=== PATIENT | male | born 1945 | race Caucasian/White ===

== ENCOUNTER 2017-07-20 06:46 | Day surgery (SDC) | payer MEDICARE ==
[2017-07-20 08:33] LABS: #Eosinphils 0.5 thou/uL (0.0-0.7); #Lymphocytes 2.2 thou/uL (1.20-3.40); #Monocytes 0.9 thou/uL (0.11-0.59); #Neutrophils 6.9 thou/uL (1.40-6.50); %Basophils 0.5 % (0.0-1.0); %Eosinophils 4.9 % (0.0-10.0); %Lymphocytes 21.2 % (21.0-51.0); %Monocytes 8.5 % (0.0-10.0); Hematocrit 57.1 % (42.0-52.0); Mean Platelet Volume 7.2 fL (7.4-10.4); Red Blood Cell (RBC) Count 6.41 mill/uL (4.70-6.10); White Blood Cell (WBC) Count 10.6 thou/uL (4.8-10.8)
[2017-07-20 08:50] LABS: Anion Gap 14 mmol/L (10-20); BUN (Urea Nitrogen) 22 mg/dL (8.4-25.7); Calc. Creatinine Clearance 84 mL/min (70-130); Calcium 9.9 mg/dL (7.8-10.44); Carbon Dioxide 28 mmol/L (23-31); Chloride 103 mmol/L (98-107); Estimated GFR-MDRD 62
[2017-07-20] MEDS ORDERED: Fentanyl 250 MCG/5 ML VIAL ONE (09:52)
[2017-07-20] MEDS ORDERED: Glycopyrrolate 0.2 MG/ML 5 ML SYRINGE ONE (10:40)
[2017-07-20] MEDS ORDERED: ePHEDrine/0.9% NaCl/PF SYRINGE 50 mg/10 ml ONE (10:40)
[2017-07-20] MEDS ORDERED: PHENYLEPHRINE-NS 100 MCG/ML 10 ML SYRINGE ONE (10:40)
[2017-07-20] MEDS ORDERED: Propofol 200 MG/20 ML VIAL ONE (10:40)
[2017-07-20] MEDS ORDERED: tiZANidine HCl 4 MG TAB ONE (12:22)
[2017-07-20] MEDS ORDERED: Fentanyl 100 MCG/2 ML VIAL ONE (12:24)
[2017-07-20] MEDS ORDERED: Morphine Sulfate 2 MG/ML SYRINGE ONE (12:32)
[2017-07-20] MEDS ORDERED: HYDROcodone/Acetaminophen 5/325 mg Tablet ONE (13:20)
--- NOTE | 2017-07-20 15:08 | EKG ---
Test Reason : PREOP Blood Pressure : / mmHG Vent. Rate : 072 BPM Atrial Rate : 072 BPM P-R Int : 180 ms QRS Dur : 100 ms QT Int : 402 ms P-R-T Axes : 062 071 048 degrees QTc Int : 440 ms Normal sinus rhythm ST elevation, consider early repolarization Borderline ECG No previous ECGs available Confirmed by LIYAH DARBY ([id number]) on 07/20/2017 3:08:28 PM Referred By: TORITO Confirmed By:LIYAH ADRBY
--- NOTE | 2017-07-20 15:47 | OP ---
DATE OF PROCEDURE: 07/20/2017 SURGEON: Kit Browning M.D. COST COORDINATOR: Rashid. PROCEDURE: L3-4 laminectomy. PROCEDURE IN DETAIL: The patient was brought into the operating room, intubated. He was rolled in the prone position on gel-filled chest rolls. Incision made exposing made exposing L3-4 and our lev el was confirmed by x-ray. We performed complete L4 and inferior L3 laminectomies and identified th e expected synovial cyst. This was removed and debrided and a complete decompression was achieved. The wound was extensively irrigated, immaculate hemostasis was secured. Vancomycin powder was appl ied and the wound was closed in anatomic layers.
[2017-07-20] MEDS ORDERED: diphenhydrAMINE HCl 25 MG CAP PO PRN (18:52)
[2017-07-20] MEDS ORDERED: Promethazine HCl 12.5 MG SUPP PR PRN (18:52)
[2017-07-20] MEDS ORDERED: Milk Of Magnesia 30 ML UDCUP PO PRN (18:52)
[2017-07-20] MEDS ORDERED: diphenhydrAMINE HCl 50 MG/ML 1 ML VIAL IVP PRN (18:52)
[2017-07-20] MEDS ORDERED: Mag-Al 1200 mg/1200 mg/30 ML UDCUP PO PRN (18:52)
[2017-07-20] MEDS ORDERED: HYDROcodone/Acetaminophen 10/325 mg Tablet PO PRN ×2 (18:52)
[2017-07-20] MEDS ORDERED: Promethazine HCl 25 MG/ML VIAL IM PRN (18:52)
[2017-07-20] MEDS ORDERED: Sodium Chloride 0.9% 1,000 ML IV SCH (18:52)
[2017-07-20] MEDS ORDERED: Morphine Sulfate 2 MG/ML SYRINGE SLOW IVP PRN (18:52)
[2017-07-20] MEDS ORDERED: Ondansetron HCl/PF 4 MG/2 ML Vial SLOW IVP PRN (18:52)
[2017-07-20] MEDS ORDERED: tiZANidine HCl 4 MG TAB PO PRN (18:52)
[2017-07-20 19:34] VITALS: BMI 31.5
[2017-07-20] MEDS ORDERED: FLU VACC TS2017-18 (>65YR) 0.5 ML SYRINGE IM ONE (21:00)
[2017-07-20] MEDS: Ketorolac Tromethamine 30 MG/ML VIAL IVP SCH (23:56)
[2017-07-21] MEDS: Ketorolac Tromethamine 30 MG/ML VIAL IVP SCH (05:29)
[2017-07-21 07:34] VITALS: BP 167/88; TEMP 97.9
--- NOTE | 2017-07-21 14:08 | DIS ---
DATE OF ADMISSION: 07/20/2017 DATE OF DISCHARGE: 07/21/2017 HOSPITAL COURSE: The patient is a 71-year-old male with progressively worsening low back and leg pain, who underwent L3-L4 laminectomy for lumbar degenerative changes and lumbar synovial cyst. Postoperatively, patient developed urinary retention and required placement of an indwelling Ventura catheter. This was removed next morning. The patient was able to void on his own approximately 600 mL. He has, otherwise, been doing well. His pain was well controlled with p.o. medications. He was ambulatory throughout the department. He had good strength to bilateral lower extremities. No sensation changes. Dressing was dry, soft. Patient was tolerating his diet. He was dismissed to home. We have scheduled followup with office in approximately 2 weeks. We have discussed home care instructions and provided patient with scripts for [place] and Zanaflex. CAROLANN
== END 2017-07-21 12:27 | disposition home or self-care (01) ==
LOC: SDC 06:46 → SURG A 18:44 → UNDOADMOB 18:44 → SURG A 18:44 → UNDODISOB 07-21 12:27 → SDC 07-21 12:27
PROVIDERS: ATTEND Neurological Surgery
PROC: 00NY0ZZ Release Lumbar Spinal Cord, Open Approach (ICD-10-PCS; principal; 2017-07-20)
DX: M48.061 Spinal stenosis, lumbar region without neurogenic claudication (principal); Z79.899 Other long term (current) drug therapy; Z90.49 Acquired absence of other specified parts of digestive tract; Z96.1 Presence of intraocular lens; Z96.652 Presence of left artificial knee joint; Z98.890 Other specified postprocedural states
CPT/HCPCS: 36416; 76001; 80048; 85025; 93005; 93010; 96374; J1885; J2270; J2704; J3010; J3370

== ENCOUNTER 2018-08-02 06:45 | Inpatient (IN) | payer MEDICARE ==
[2018-07-30 14:18] VITALS: BMI 29.8
[2018-08-02 07:07] LABS: #Basophils 0.1 thou/uL (0.0-0.2); #Eosinphils 0.7 thou/uL (0.0-0.7); #Lymphocytes 2.4 thou/uL (1.20-3.40); #Monocytes 0.8 thou/uL (0.11-0.59); #Neutrophils 6.1 thou/uL (1.40-6.50); %Basophils 0.5 % (0.0-1.0); %Lymphocytes 24.1 % (21.0-51.0); %Monocytes 7.7 % (0.0-10.0); %Neutrophils 60.7 % (42.0-75.0); Hemoglobin 15.9 g/dL (14.0-18.0); Mean Corpuscular HGB CONC 31.9 g/dL (32.0-36.0); Mean Corpuscular Hemoglobin 27.9 pg (27.0-31.0); Mean Corpuscular Volume 87.5 fL (78.0-98.0); Mean Platelet Volume 7.5 fL (7.4-10.4); Platelet Count 220 thou/uL (130-400); RBC Distribution Width 13.1 % (11.5-14.5); Red Blood Cell (RBC) Count 5.71 mill/uL (4.70-6.10)
[2018-08-02 07:18] LABS: Anion Gap 8 mmol/L (10-20); BUN (Urea Nitrogen) 23 mg/dL (8.4-25.7); Calc. Creatinine Clearance 70 mL/min (70-130); Calcium 9.3 mg/dL (7.8-10.44); Carbon Dioxide 34 mmol/L (23-31); Chloride 100 mmol/L (98-107); Estimated GFR-MDRD 51; Glucose 112 mg/dL (83-110); Potassium 4.4 mmol/L (3.5-5.1); Sodium 138 mmol/L (136-145)
[2018-08-02] MEDS ORDERED: CEFAZOLIN 2 GM/50 ML BAG ONE (07:30)
[2018-08-02] MEDS ORDERED: Fentanyl 100 MCG/2 ML VIAL ONE ×4 (07:33→10:24)
[2018-08-02] MEDS ORDERED: Sodium Chloride 0.9% 10 ML ONE (08:20)
[2018-08-02] MEDS ORDERED: Promethazine HCl 25 MG/ML VIAL IM PRN ×2 (09:43→11:08)
[2018-08-02] MEDS ORDERED: Ondansetron HCl/PF 4 MG/2 ML Vial IVP PRN (09:43)
[2018-08-02] MEDS ORDERED: Promethazine HCl 25 MG/ML VIAL SLOW IVP PRN (09:43)
[2018-08-02] MEDS ORDERED: Milk Of Magnesia 30 ML UDCUP PO PRN (11:08)
[2018-08-02] MEDS ORDERED: Morphine 4 MG/ML VIAL SLOW IVP PRN (11:08)
[2018-08-02] MEDS ORDERED: HYDROcodone/Acetaminophen 10/325 mg Tablet PO PRN ×2 (11:08)
[2018-08-02] MEDS ORDERED: Promethazine 25 MG TAB PO PRN (11:08)
[2018-08-02] MEDS ORDERED: Mag-Al 1200 mg/1200 mg/30 ML UDCUP PO PRN (11:08)
[2018-08-02] MEDS ORDERED: Promethazine HCl 12.5 MG SUPP PR PRN (11:08)
[2018-08-02] MEDS ORDERED: Ondansetron PF 4 MG/2 ML Vial IVP PRN (11:09)
[2018-08-02] MEDS ORDERED: diphenhydrAMINE 25 MG CAP PO PRN (11:13)
[2018-08-02] MEDS ORDERED: diphenhydrAMINE 50 MG/ML VIAL IVP PRN (11:13)
[2018-08-02] MEDS: Ketorolac Tromethamine 30 MG/ML VIAL IVP SCH ×2 (11:39→17:31)
[2018-08-02] MEDS: Sodium Chloride 0.9% 1,000 ML IV SCH (11:42)
--- NOTE | 2018-08-02 11:45 | OP ---
DATE OF PROCEDURE: 08/02/2018 SURGEON: Kit Browning M.D. FIELD CARE COORDINATOR: Sven Mcgregor PA-C PROCEDURE: L3-L5 laminectomy, facetectomy, foraminotomy, and removal of synovial cyst, interbody art hrodesis, intravertebral biomechanical device, local morselized autograft, demineralized bone matrix, posterior lateral arthrodesis, demineralized bone matrix, pedicle screw instrumentation L3 through L 5. PROCEDURE IN DETAIL: The patient was brought to the operating room and intubated. He was rolled in the prone position on gel-filled chest rolls. Incision made exposing L3 through L5 and our level was confirmed by x-ray. We performed left-sided L3-4 and L4-5 decompressive laminectomy, facetectomy an d foraminotomies. At L3-4 as expected, we found a synovial cyst. A complete decompression was achie izaiah at both levels. The disk was entirely removed and the bony endplates were decorticated for the p urpose of arthrodesis. Appropriately sized intravertebral biomechanical PEEK device was then brought into the field, filled with demineralized bone matrix and local morselized autograft, and tapped int o place securely at L3-L4 and L4-L5. Next, pedicle screws were placed at left L3, left L4, left L5 u sing lateral fluoroscopic guidance. A iggy was secured between the screws. Compression was applied a nd the iggy was secured by nuts which were final tightened. The wound was then extensively irrigated, immaculate hemostasis was secured. A combination of demineralized bone matrix, local morselized aut ograft was laid over the right laminar and posterolateral surfaces for the purpose of arthrodesis. V ancomycin powder was applied and the wound was then closed in anatomic layers.
[2018-08-02] MEDS: tiZANidine HCl 4 MG TAB PO PRN (12:34)
[2018-08-02] MEDS ORDERED: Insulin Regular 300 UNITS/3 ML VIAL SC PRN ×2 (13:45)
[2018-08-02] MEDS ORDERED: Senokot S 8.6-50 MG TAB PO SCH (13:45)
[2018-08-02] MEDS ORDERED: Dextrose 5% in Water 1,000 ML IV PRN (13:45)
[2018-08-02] MEDS ORDERED: Dextrose 50% Abboject 50 ML SYRINGE SLOW IVP PRN (13:45)
--- NOTE | 2018-08-02 14:58 | EKG ---
Test Reason : PREOP Blood Pressure : / mmHG Vent. Rate : 079 BPM Atrial Rate : 079 BPM P-R Int : 174 ms QRS Dur : 102 ms QT Int : 398 ms P-R-T Axes : 058 068 041 degrees QTc Int : 456 ms Sinus rhythm with Premature atrial complexes with Abberant conduction Non-specific intra-ventricular conduction delay Abnormal ECG Confirmed by LIYAH DARBY ([id number]) on 08/02/2018 2:58:15 PM Referred By: TORITO Confirmed By:LIYAH DARBY
[2018-08-02] MEDS: CEFAZOLIN 2 GM/50 ML-DEXTROSE 2 GM in Premix Bag 1 BAG IVPB SCH (15:31)
[2018-08-02] MEDS ORDERED: CEFAZOLIN/Water 2 GM/20 ML SYRINGE SLOW IVP SCH (16:00)
[2018-08-02] MEDS ORDERED: Ketorolac Tromethamine 30 MG/ML VIAL ONE (17:06)
[2018-08-02] MEDS ORDERED: ePHEDrine/0.9% NaCl/PF SYRINGE 50 mg/10 ml ONE (17:06)
[2018-08-02] MEDS ORDERED: PHENYLEPHRINE-NS 100 MCG/ML 10 ML SYRINGE ONE (17:06)
[2018-08-02] MEDS ORDERED: Dexamethasone 20 MG/5 ML VIAL ONE (17:06)
[2018-08-02] MEDS ORDERED: Glycopyrrolate 0.2 MG/ML 5 ML SYRINGE ONE (17:06)
[2018-08-02] MEDS ORDERED: Ondansetron PF 4 MG/2 ML Vial ONE (17:06)
[2018-08-02] MEDS ORDERED: Lidocaine 1% PF 5 ML VIAL ONE (17:06)
[2018-08-02] MEDS ORDERED: PROPOFOL 200 MG/20 ML VIAL ONE (17:06)
[2018-08-02] MEDS: metFORMIN 500 MG TAB PO SCH (17:31)
[2018-08-02] MEDS ORDERED: Lisinopril/Hydrochlorothiazide 20 mg/12.5 mg Tablet PO SCH (21:00)
--- NOTE | 2018-08-02 21:27 | PDOC.PN ---
- Subjective Encounter Start Date: 08/02/18 Encounter Start Time: 14:00 Patient seen and examined for med mngt. No new complaints. No overnight events - Objective MAR Reviewed: Yes Vital Signs & Weight: Vital Signs (12 hours) Temp Pulse Resp BP Pulse Ox 08/02/18 20:00 98.7 F 86 19 146/76 H 95 08/02/18 10:30 97.8 F 90 16 146/76 H 92 L Weight Weight 220 lb I&O: 08/01/18 08/02/18 08/03/18 06:59 06:59 06:59 Intake Total 1505 Output Total 560 Balance 945 Result Diagrams: 08/02/18 06:59 08/02/18 06:59 Additional Labs: Accuchecks 08/02/18 18:04 POC Glucose 155 H EKG Reviewed by me: Yes (SR) Phys Exam - Physical Examination Constitutional: NAD Respiratory: no wheezing, no rhonchi Cardiovascular: RRR, no rub Gastrointestinal: soft, non-tender, positive bowel sounds Musculoskeletal: no edema Neurological: moves all 4 limbs Dx/Plan - Plan DVT proph w/SCDs 1. HTN Cont Lisinopril/HCTZ BMP in AM 2. DM2 Lantus 10 units HS with Metformin Add sliding scale 3. Chronic constipation Add Miralax and Sen S 4. HLD Cont Statins 5. CKD 3 Avoid Nephrotoxic agents Will follow. Thank you for this consultation. Full code. DPOA - self/family Review of Systems - Review of Systems Respiratory: negative: Cough, Dry, Shortness of Breath, Hemoptysis, SOB with Excertion, Pleuritic Pain, Sputum, Wheezing Cardiovascular: negative: chest pain, palpitations, orthopnea, paroxysmal nocturnal dyspnea, edema, light headedness, other - Medications/Allergies Allergies/Adverse Reactions: Allergies Allergy/AdvReac Type Severity Reaction Status Date / Time tamsulosin Allergy Severe Swollen Verified 08/02/18 20:34 Lips Medications: Current Medications Hydrocodone Bitart/Acetaminophen ([place] 10/325) 1 tab PO Q4H PRN PRN Reason: PAIN (1-3) Hydrocodone Bitart/Acetaminophen ([place] 10/325) 2 tab PO Q4H PRN PRN Reason: PAIN (4-6) Last Admin: 08/02/18 12:34 Dose: 2 tab Al Hydroxide/Mg Hydroxide (Maalox) 30 ml PO Q4H PRN PRN Reason: Heartburn or Indigestion Dextrose/Water (Dextrose 50%) 25 gm SLOW IVP PRN PRN PRN Reason: Hypoglycemia Diphenhydramine HCl (Benadryl) 25 mg PO Q6H PRN PRN Reason: Itching Diphenhydramine HCl (Benadryl) 25 mg IVP Q6H PRN PRN Reason: Itching Glucagon (Glucagon) 1 mg IM PRN PRN PRN Reason: Hypoglycemia Lisinopril/HCTZ (Prinizide 20-12.5) 1 tab PO [facility] Sodium Chloride (Normal Saline 0.9%) 1,000 mls @ 75 mls/hr IV .[id number] [facility] Last Admin: 08/02/18 11:42 Dose: Not Given Cefazolin Sodium/Dextrose 2 gm (/ Device) 50 mls @ 100 mls/hr IVPB 0800,1600, 2359 [facility] Stop: 08/03/18 00:28 Last Admin: 08/02/18 15:31 Dose: 50 mls Insulin Glargine 10 units/ (Miscellaneous Medication) 0.1 mls @ 0 mls/hr SC [facility] Dextrose/Water (D5w) 1,000 mls @ 0 mls/hr IV .Q0M PRN PRN Reason: Hypoglycemia Cefazolin Sodium/Dextrose 2 gm (/ Device) 50 mls @ 100 mls/hr IVPB 0800,1600, 2359 [facility] Insulin Human Regular (Humulin R) 0 units SC .MILD SLIDING SCALE PRN PRN Reason: Mild Correctional Scale Insulin Human Regular (Humulin R) 0 units SC .BEDTIME SLIDING SC PRN PRN Reason: Bedtime Correctional Scale Ketorolac Tromethamine (Toradol) 15 mg IVP Q6HR [facility] Stop: 08/04/18 06:01 Last Admin: 08/02/18 17:31 Dose: 15 mg Magnesium Hydroxide (Milk Of Magnesium) 30 ml PO Q12H PRN PRN Reason: Constipation Meloxicam (Mobic) 7.5 mg PO DAILY [facility] Metformin HCl (Glucophage) 500 mg PO BID-[facility] Last Admin: 08/02/18 17:31 Dose: 500 mg Morphine Sulfate (Morphine) 2 mg SLOW IVP Q1H PRN PRN Reason: Moderate Breakthrough Pain Morphine Sulfate (Morphine) 4 mg SLOW IVP Q1H PRN PRN Reason: SEVERE BREAKTHROUGH PAIN Last Admin: 08/02/18 11:39 Dose: 4 mg Multivitamins (Theragran) 1 tab PO DAILY [facility] Ondansetron HCl (Zofran) 4 mg IVP Q8H PRN PRN Reason: Nausea/Vomiting Polyethylene Glycol (Miralax) 17 gm PO BID [facility] Promethazine HCl (Phenergan) 12.5 mg IM Q4H PRN PRN Reason: Nausea/Vomiting Promethazine HCl (Phenergan) 12.5 mg PO Q4H PRN PRN Reason: Nausea/Vomiting Promethazine HCl (Phenergan Suppository) 12.5 mg [place] Q4H PRN PRN Reason: Nausea/Vomiting Rosuvastatin Calcium (Crestor) 10 mg PO HS [place] Senna/Docusate Sodium (Senokot S) 2 tab PO BID [facility] Sodium Chloride (Flush - Normal Saline) 10 ml IVF PRN PRN PRN Reason: Saline Flush Testosterone Cypionate (Depo-Testosterone) 120 mg IM We [facility] Tizanidine HCl (Zanaflex) 4 mg PO Q6H PRN PRN Reason: MUSCLE SPASM Last Admin: 08/02/18 12:34 Dose: 4 mg
[2018-08-02] MEDS: Rosuvastatin 10 MG TAB PO SCH (22:02)
[2018-08-02] MEDS: Senokot S 8.6-50 MG TAB PO SCH (22:03)
[2018-08-02] MEDS: Lisinopril/Hydrochlorothiazide 20 mg/12.5 mg Tablet PO SCH (22:03)
[2018-08-02] MEDS: Polyethylene Glycol 3350 17 GM Packet PO SCH (22:04)
[2018-08-02] MEDS: Insulin Glargine 10 UNITS in Pre-Filled Syringe 1 EACH SC SCH (22:04)
[2018-08-03] MEDS: Ketorolac Tromethamine 30 MG/ML VIAL IVP SCH ×2 (00:06→06:04)
[2018-08-03] MEDS: CEFAZOLIN 2 GM/50 ML-DEXTROSE 2 GM in Premix Bag 1 BAG IVPB SCH ×3 (00:08→17:54)
[2018-08-03] MEDS: Sodium Chloride 0.9% 1,000 ML IV SCH ×2 (00:12→18:11)
[2018-08-03 05:50] LABS: Anion Gap 12 mmol/L (10-20); BUN (Urea Nitrogen) 29 mg/dL (8.4-25.7); Calc. Creatinine Clearance 67 mL/min (70-130); Calcium 8.3 mg/dL (7.8-10.44); Carbon Dioxide 29 mmol/L (23-31); Chloride 99 mmol/L (98-107); Estimated GFR-MDRD 49; Glucose 147 mg/dL (83-110); Magnesium 1.7 mg/dL (1.6-2.6); Potassium 4.3 mmol/L (3.5-5.1); Sodium 136 mmol/L (136-145)
--- NOTE | 2018-08-03 07:42 | PRG ---
DATE OF SERVICE: 08/03/2018 ATTENDING PHYSICIAN: Dr. Kit Browning SUBJECTIVE: The patient is a 72-year-old male status post L3-L5 decompression and fusion, postoperative day #1. The patient reports his pain is well controlled and he has no complaints this morning at the bedside with regards to pain. He is reporting his constipation and has orders for Milk of Magnesia, MiraLax, and Senna. He reports that often when he developed constipation he subsequently also develops urinary retention. He has had issues with urinary retention yesterday afternoon and overnight requiring placement of indwelling Ventura catheter. He is unable to take Flomax. He reports this is similar to prior surgeries and has a known history of BPH. He has no other complaints at this time. His GORAN had 135 output last night. He is awake, alert, comfortable. He has free active range of motion of all extremities. His dressing is dry. No focal neurologic deficits are appreciated. I have added p.r.n. Fleet enema for constipation relief. The patient reports this helped significantly last time and once his constipation improved he was able to urinate without difficulty. We will leave Ventura catheter for now until constipation improves and then we will plan to remove with voiding trial after that time. We will continue to monitor his GORAN output and leave in place for now. CAROLANN
[2018-08-03] MEDS: metFORMIN 500 MG TAB PO SCH ×2 (08:20→17:54)
[2018-08-03] MEDS: Meloxicam 7.5 MG TAB PO SCH (08:20)
[2018-08-03] MEDS: Multivit, Therapeutic 1 TAB PO SCH (08:21)
[2018-08-03] MEDS: Senokot S 8.6-50 MG TAB PO SCH ×2 (08:21→21:45)
[2018-08-03] MEDS: Polyethylene Glycol 3350 17 GM Packet PO SCH ×2 (08:21→08:53)
[2018-08-03] MEDS ORDERED: TOUJEO SOLOSTAR SC SCH (09:00)
[2018-08-03] MEDS ORDERED: Magnesium Citrate 300 ML BOT PO SCH (12:00)
[2018-08-03] MEDS: Rosuvastatin 10 MG TAB PO SCH (21:26)
[2018-08-03] MEDS: Insulin Glargine 10 UNITS in Pre-Filled Syringe 1 EACH SC SCH (21:26)
[2018-08-03] MEDS: Lisinopril/Hydrochlorothiazide 20 mg/12.5 mg Tablet PO SCH (21:26)
[2018-08-03] MEDS: tiZANidine HCl 4 MG TAB PO PRN (21:27)
--- NOTE | 2018-08-03 22:40 | PDOC.PN ---
- Subjective Encounter Start Date: 08/03/18 Encounter Start Time: 13:00 Patient seen and examined for med mngt. Constipated. No new complaints. Overnight events noted. - Objective MAR Reviewed: Yes Vital Signs & Weight: Vital Signs (12 hours) Temp Pulse Resp BP BP Pulse Ox 08/03/18 21:26 98 175/81 H 94 L 08/03/18 20:51 98.7 F 98 18 175/81 H 91 L 08/03/18 15:48 98.4 F 93 16 171/74 H 94 L 08/03/18 11:59 98.0 F 85 16 167/79 H 95 Weight Weight 220 lb I&O: 08/02/18 08/03/18 08/04/18 06:59 06:59 06:59 Intake Total 2735 Output Total 2695 2670 Balance 40 -2670 Result Diagrams: 08/02/18 06:59 08/03/18 05:00 Additional Labs: Accuchecks 08/03/18 08/03/18 08/03/18 21:26 16:04 10:42 POC Glucose 108 103 104 08/03/18 06:23 POC Glucose 136 H Phys Exam - Physical Examination Constitutional: NAD Respiratory: no wheezing, no rhonchi Cardiovascular: RRR, no rub Gastrointestinal: soft, non-tender, positive bowel sounds Musculoskeletal: no edema Neurological: moves all 4 limbs Dx/Plan - Plan DVT proph w/SCDs 1. HTN Cont Lisinopril/HCTZ 2. DM2 Cont Lantus 10 units HS Cont sliding scale 3. Chronic constipation Miralax and Sen S Add Mag Citrate 4. HLD Cont Statins 5. CKD 3 Avoid Nephrotoxic agents 6. Urinary retention s/p siddiqi DC Siddiqi after BM Review of Systems - Review of Systems Respiratory: negative: Cough, Dry, Shortness of Breath, Hemoptysis, SOB with Excertion, Pleuritic Pain, Sputum, Wheezing Cardiovascular: negative: chest pain, palpitations, orthopnea, paroxysmal nocturnal dyspnea, edema, light headedness, other - Medications/Allergies Allergies/Adverse Reactions: Allergies Allergy/AdvReac Type Severity Reaction Status Date / Time tamsulosin Allergy Severe Swollen Verified 08/02/18 20:34 Lips Medications: Current Medications Hydrocodone Bitart/Acetaminophen ([place] 10/325) 1 tab PO Q4H PRN PRN Reason: PAIN (1-3) Hydrocodone Bitart/Acetaminophen ([place] 10/325) 2 tab PO Q4H PRN PRN Reason: PAIN (4-6) Last Admin: 08/02/18 12:34 Dose: 2 tab Al Hydroxide/Mg Hydroxide (Maalox) 30 ml PO Q4H PRN PRN Reason: Heartburn or Indigestion Dextrose/Water (Dextrose 50%) 25 gm SLOW IVP PRN PRN PRN Reason: Hypoglycemia Diphenhydramine HCl (Benadryl) 25 mg PO Q6H PRN PRN Reason: Itching Diphenhydramine HCl (Benadryl) 25 mg IVP Q6H PRN PRN Reason: Itching Glucagon (Glucagon) 1 mg IM PRN PRN PRN Reason: Hypoglycemia Lisinopril/HCTZ (Prinizide 20-12.5) 1 tab PO [facility] Last Admin: 08/03/18 21:26 Dose: 1 tab Sodium Chloride (Normal Saline 0.9%) 1,000 mls @ 75 mls/hr IV .[id number] [facility] Last Admin: 08/03/18 18:11 Dose: Not Given Insulin Glargine 10 units/ (Miscellaneous Medication) 0.1 mls @ 0 mls/hr SC [facility] Last Admin: 08/03/18 21:26 Dose: Not Given Dextrose/Water (D5w) 1,000 mls @ 0 mls/hr IV .Q0M PRN PRN Reason: Hypoglycemia Cefazolin Sodium/Dextrose 2 gm (/ Device) 50 mls @ 100 mls/hr IVPB 0800,1600, 2359 [facility] Last Admin: 08/03/18 17:54 Dose: 50 mls Insulin Human Regular (Humulin R) 0 units SC .MILD SLIDING SCALE PRN PRN Reason: Mild Correctional Scale Insulin Human Regular (Humulin R) 0 units SC .BEDTIME SLIDING SC PRN PRN Reason: Bedtime Correctional Scale Magnesium Hydroxide (Milk Of Magnesium) 30 ml PO Q12H PRN PRN Reason: Constipation Last Admin: 08/03/18 11:54 Dose: 30 ml Meloxicam (Mobic) 7.5 mg PO DAILY [facility] Last Admin: 08/03/18 08:20 Dose: 7.5 mg Metformin HCl (Glucophage) 500 mg PO BID-[facility] Last Admin: 08/03/18 17:54 Dose: 500 mg Morphine Sulfate (Morphine) 2 mg SLOW IVP Q1H PRN PRN Reason: Moderate Breakthrough Pain Morphine Sulfate (Morphine) 4 mg SLOW IVP Q1H PRN PRN Reason: SEVERE BREAKTHROUGH PAIN Last Admin: 08/02/18 11:39 Dose: 4 mg Multivitamins (Theragran) 1 tab PO DAILY [facility] Last Admin: 08/03/18 08:21 Dose: 1 tab Ondansetron HCl (Zofran) 4 mg IVP Q8H PRN PRN Reason: Nausea/Vomiting Polyethylene Glycol (Miralax) 17 gm PO DAILY [facility] Last Admin: 08/03/18 08:53 Dose: Not Given Promethazine HCl (Phenergan) 12.5 mg IM Q4H PRN PRN Reason: Nausea/Vomiting Promethazine HCl (Phenergan) 12.5 mg PO Q4H PRN PRN Reason: Nausea/Vomiting Promethazine HCl (Phenergan Suppository) 12.5 mg [place] Q4H PRN PRN Reason: Nausea/Vomiting Rosuvastatin Calcium (Crestor) 10 mg PO [facility] Last Admin: 08/03/18 21:26 Dose: 10 mg Senna/Docusate Sodium (Senokot S) 2 tab PO BID [facility] Last Admin: 08/03/18 21:45 Dose: Not Given Sodium Chloride (Flush - Normal Saline) 10 ml IVF PRN PRN PRN Reason: Saline Flush Tizanidine HCl (Zanaflex) 4 mg PO Q6H PRN PRN Reason: MUSCLE SPASM Last Admin: 08/03/18 21:27 Dose: 4 mg
[2018-08-04] MEDS: CEFAZOLIN 2 GM/50 ML-DEXTROSE 2 GM in Premix Bag 1 BAG IVPB SCH ×3 (00:01→16:13)
[2018-08-04] MEDS: Sodium Chloride 0.9% 1,000 ML IV SCH ×2 (00:01→16:13)
--- NOTE | 2018-08-04 07:10 | DIS-2 ---
DATE OF ADMISSION: 08/02/2018 DATE OF DISCHARGE: 08/04/2018 ATTENDING PHYSICIAN: Dr. Kit Browning. HOSPITAL COURSE: The patient is a 72-year-old female status post L3-L5 decompression and f usion. Following the surgery, he was admitted to the med/surg floor where his pain was well controll ed with p.o. medications. The patient was tolerating regular diet. Initially, the patient developed urinary retention which required indwelling Ventura catheter placement. The patient also initially marques d constipation, but this was relieved with p.o. medications. Once his constipation improved, the Fol ey catheter was removed and the patient was able to urinate on his own without difficulty. His GORAN dr anson, which was placed intraoperatively has trended down nicely and has only had 30 mL over the last n ight. The patient is in bed comfortably, awake, alert, in no acute distress. He has free active range of m otion of all extremities. His dressing is dry. Incision is intact. He has no focal neurologic defi cits. We will plan to dismiss the patient to home. GORAN drain will be removed prior to discharge. I have di scussed home care precautions and will follow up with the patient in 2 weeks in the office for ronda claire with x-rays at that time. The patient has been prescribed with a prescription for [place], Zanaflex, and Keflex.
[2018-08-04] MEDS: Polyethylene Glycol 3350 17 GM Packet PO SCH (10:42)
[2018-08-04] MEDS: Multivit, Therapeutic 1 TAB PO SCH (10:42)
[2018-08-04] MEDS: Meloxicam 7.5 MG TAB PO SCH (10:42)
[2018-08-04] MEDS: Senokot S 8.6-50 MG TAB PO SCH (10:42)
[2018-08-04 16:10] VITALS: BP 190/84; TEMP 98.5
== END 2018-08-04 19:00 | disposition home or self-care (01) | DRG 460 ==
LOC: SURG A 06:45 → SJJU 10:30 → EDSTATUS 13:16
PROVIDERS: ADMIT Neurological Surgery; ATTEND Neurological Surgery
PROC: 0SG10AJ Fusion of 2 or more Lumbar Vertebral Joints with Interbody Fusion Device, Posterior Approach, Anterior Column, Open Approach (ICD-10-PCS; principal; 2018-08-02)
PROC: 01NB0ZZ Release Lumbar Nerve, Open Approach (ICD-10-PCS; 2018-08-02)
DX: M48.061 Spinal stenosis, lumbar region without neurogenic claudication (principal); K59.00 Constipation, unspecified; R33.9 Retention of urine, unspecified; N40.0 Benign prostatic hyperplasia without lower urinary tract symptoms; N18.3 Chronic kidney disease, stage 3 (moderate); I12.9 Hypertensive chronic kidney disease with stage 1 through stage 4 chronic kidney disease, or unspecified chronic kidney disease; E11.22 Type 2 diabetes mellitus with diabetic chronic kidney disease; Z79.4 Long term (current) use of insulin; Z79.891 Long term (current) use of opiate analgesic; Z79.1 Long term (current) use of non-steroidal anti-inflammatories (NSAID); Z79.899 Other long term (current) drug therapy
CPT/HCPCS: 36415; 36416; 76001; 80048; 83735; 85025; 93005; 93010; C1713; C1768; G8978-GP-CJ; G8979-GP-CJ; G8980-GP-CJ; J1100; J1200; J1885; J2001; J2270; J2405; J2704; J3010; J3370; J3490